=== PATIENT | male | born 2000 | race Hispanic/Latino ===

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

== ENCOUNTER 2020-01-20 11:56 | Emergency (ER) | payer OTHER | END 2020-01-20 13:46 | disposition home or self-care (01) | LOC: ERS 11:56 | DX: T22.011D Burn of unspecified degree of right forearm, subsequent encounter (principal) | CPT/HCPCS: 99282 ==